=== PATIENT | male | born 1975 | race Hispanic/Latino ===

== ENCOUNTER → 2023-10-10 10:12 | Outpatient (REF) | payer OTHER, SELFPAY ==
[2023-10-10 11:04] LABS: % Basophils 1.2 % (0-2); % Eosinophils 2.5 % (0-6); % Immature Granulocytes 0.3 % (0-0.5); % Lymphocytes 31.7 % (20.5-51.1); % Monocytes 7.4 % (1.7-9.3); % Neutrophils 56.9 % (42.2-75.2); Absolute Basophils 0.1 10^3/uL (0-0.2); Absolute Eosinophils 0.2 10^3/uL (0-0.7); Absolute Lymphocytes 2.4 10^3/uL (1.2-3.4); Absolute Monocytes 0.6 10^3/uL (0.1-0.6); Absolute Neutrophils 4.3 10^3/uL (1.4-6.5); Hemoglobin 15.3 g/dL (13.0-18.0); Mean Corp Hgb Conc. 34.8 g/dL (33.0-37.0); Mean Corpuscular Hgb 28.7 pg (27.0-31.0); Mean Corpuscular Volume 82.4 fL (80.0-94.0); Mean Platelet Volume 11.2 fL (7.4-10.4); Nucleated Red Blood Cells % 0 % (-); Platelet Count 261 10^3/uL (130-400); Red Blood Cell Count 5.34 10^6/uL (4.70-6.10); Red Cell Dist. Width 12.3 % (11.5-14.5); White Blood Cell Count 7.6 10^3/uL (4.8-10.8)
[2023-10-10 11:09] LABS: Urine Albumin Negative (Neg - Trace); Urine Bilirubin Negative (Negative); Urine Character Clear (Clear); Urine Color Yellow; Urine Glucose Negative (Negative); Urine Ketone Negative (Negative); Urine Leukocyte Negative (Negative); Urine Nitrite Negative (Negative); Urine Occult Blood Negative (Negative); Urine Urobilinogen Negative (Neg - 1+)
[2023-10-10 11:29] LABS: ALT (SGPT) 31 U/L (0-50); AST (SGOT) 28 U/L (17-59); Albumin 3.9 g/dl (3.5-5.0); Alkaline Phosphatase 75 U/L (38-126); Blood Urea Nitrogen 15 mg/dl (9-20); Calcium 9.1 mg/dl (8.4-10.2); Carbon Dioxide 33 mmol/L (22-30); Chloride 100 mmol/L (98-107); Glucose 91 mg/dl (70-99); HDL Cholesterol 38 mg/dl; LDL Cholesterol, Calculated 99 mg/dl; Potassium 3.5 mmol/L (3.5-5.1); Sodium 141 mmol/L (135-145); Total Cholesterol 160 mg/dl (50-199); Total Protein 6.8 g/dl (6.3-8.2); Triglyceride 117 mg/dl (10-149); Very Low Density Lipoprotein 23 mg/dl (0-30); eGFR > 60.00
[2023-10-10 11:59] LABS: TSH Reflex To Free T4 0.75 uIU/ml (0.47-4.68)
[2023-10-10 12:00] LABS: Hepatitis B Surface Antigen Negative (Negative)
[2023-10-10 12:17] LABS: Hepatitis B Surface Antibody Negative; Hepatitis C Antibody Negative (Negative)
[2023-10-10 12:52] LABS: Hepatitis A Antibody, Total Positive (Negative)
== END ==
LOC: CLINIC 10:12
PROVIDERS: ATTENDING PHYSICIAN Family Medicine; FAMILY PHYSICIAN Nurse Practitioner Adult Health
DX: R07.2 Precordial pain (principal); Z00.01 Encounter for general adult medical examination with abnormal findings; R03.0 Elevated blood-pressure reading, without diagnosis of hypertension; K76.9 Liver disease, unspecified; H57.13 Ocular pain, bilateral
CPT/HCPCS: 36415; 71046; 80053; 80061; 81003; 84443; 85025; 86706; 86708; 86803; 87340

== ENCOUNTER → 2024-04-25 08:31 | Outpatient (REF) | payer OTHER, SELFPAY ==
[2024-04-27 12:18] LABS: Quantiferon Mitogen minus NIL 9.93 IU/mL; Quantiferon NIL 0.07 IU/mL; Quantiferon Plus TB1 minus NIL 0.03 IU/mL (<=0.34); Quantiferon Plus TB2 minus NIL 0.03 IU/mL (<=0.34); Quantiferon TB Gold Plus Negative (Negative)
== END ==
LOC: REG 08:31
PROVIDERS: ATTENDING PHYSICIAN Nurse Practitioner Adult Health
DX: J84.10 Pulmonary fibrosis, unspecified (principal)
CPT/HCPCS: 36415; 86480

== ENCOUNTER 2024-12-08 11:55 | Emergency (ER) | payer SELFPAY ==
[2024-12-08 11:58] VITALS: BP 192/137
--- NOTE | 2024-12-08 12:26 | ED.GENMED ---
History of Present Illness
<Kiera Guerrero, COBBLER UPPER - Last Filed: 12/08/24 16:36>
General
Chief Complaint: Fever
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
Exam Limitations: none
Time Seen by Provider: 12/08/24 12:21
Nursing documentation reviewed up to this point in time: agreed with
History of Present Illness
History of Present Illness:
49-year-old male with no past medical history states he has had gradually increasing right submandibular pain over the past 2 days. He states he has had fever and chills but did not take his temperature. He states he has pain with swallowing. He
denies pain in his ears. He denies nausea or vomiting. He has not taken his BP med in a month. He ran out.
Past History
<Kiera Guerrero, COBBLER UPPER - Last Filed: 12/08/24 16:36>
Past History
ED Past Medical History: HTN
ED Past Surgical History: None
Social History
Tobacco: Non-smoker
Alcohol: None
Drug: None
Personal:
Living: with family
Employment: Not employed
Review of Systems
<Kiera Guerrero, COBBLER UPPER - Last Filed: 12/08/24 16:36>
Review of Systems
Allergies reviewed?: Yes
All Other Systems: ROS reviewed and negative except as documented in HPI and ROS
Constitutional: Reports fever; Denies chills
EENT: Reports other (Swelling under right jaw, pain with swallowing)
Respiratory: Denies trouble breathing
Cardiac: Denies chest pain
ABD/GI: Denies abdominal pain, nausea, vomiting or diarrhea
: Denies dysuria, frequency or difficulty voiding
Musculoskeletal: Reports no symptoms
Skin: Reports no symptoms
Neurological: Reports no symptoms
Phy Exam
<Kiera Guerrero, COBBLER UPPER - Last Filed: 12/08/24 16:36>
Physical Exam
Physical Exam:
GENERAL: No acute distress. A&Ox3.
CONSTITUTIONAL: Afebrile.
EYES: clear, conjunctivae normal
ENMT: moist mucus membranes, Pharynx nl, no trismus. Moderately swollen, tender mass right submandibular area. Speaking and swallowing well. No dental pain to palpation, no visible or palpable dental abscess
RESPIRATORY: Regular respirations, nonlabored, lungs clear..
CARDIOVASCULAR: Regular rate and rhythm, no murmurs, no rubs.
GI: Soft, nontender, normal BS
MUSCULOSKELETAL: Moves with ease. Well perfused.
SKIN: Warm, dry, pink
PSYCH: Normal mood and affect. Well kept, interactive and appropriate
NEUROLOGIC: Awake, alert and oriented. No focal neurological deficits
Sepsis
<Kiera Guerrero, COBBLER UPPER - Last Filed: 12/08/24 16:36>
Sepsis Screening
Sepsis Assessment: Sepsis Ruled Out
Sepsis Screen
Sepsis Screen: Sepsis Ruled Out
Date: 12/08/24
Time: 16:36
Course
<Kiera Guerrero, COBBLER UPPER - Last Filed: 12/08/24 16:36>
Orders/Labs/Results
Orders:
Orders
12/08/24 12:25
CT Neck With Iv Contrast Urgent
Comment:
Reason For Exam: swelling, pain right submandibular area
12/08/24 12:36
Ketorolac [Toradol] 15 mg IV NOW STA
12/08/24 12:37
0.9% Sodium Chloride 1000 ml [Nss] 1,000 ml IV BOLUS
12/08/24 12:51
Complete Blood Count/With Diff Urgent
Comprehensive Metabolic Panel Urgent
12/08/24 13:24
Lisinopril [Zestril] 10 mg PO NOW STA
12/08/24 14:28
Vital Signs- Treatment ONCE
Frequency: Once
12/08/24 16:05
Lisinopril [Zestril] 10 mg PO NOW STA
12/08/24 16:15
Dicloxacillin [Dynapen] 500 mg PO NOW STA
12/08/24 16:19
Amoxicillin 875 mg/Clav 125 mg [Augmentin 875 mg/125 mg] 1 tablet PO NOW STA
Abnormal Lab Results
12/08/24
12:51
WBC 14.2 H 10^3/uL
(4.8-10.8)
MPV 10.5 H fL
(7.4-10.4)
Abs Immat Gran (auto) 0.1 H 10^3/uL
(0-0.05)
Absolute Neuts (auto) 10.0 H 10^3/uL
(1.4-6.5)
Absolute Monos (auto) 1.4 H 10^3/uL
(0.1-0.6)
Lymphocytes % 18.1 L %
(20.5-51.1)
Monocytes % 9.8 H %
(1.7-9.3)
Potassium 3.3 L mmol/L
(3.5-5.1)
Carbon Dioxide 31 H mmol/L
(22-30)
Glucose 100 H mg/dl
(70-99)
Total Bilirubin 1.6 H mg/dl
(0.2-1.3)
ALT 54 H U/L
(0-50)
12/08/24 12:51
12/08/24 12:51
Vital Signs
Initial and Last Documented VS:
Initial Vital Signs
Temp Pulse Resp BP Pulse Ox
99.4 F 93 22 192/137 95
12/08/24 11:58 12/08/24 11:58 12/08/24 11:58 12/08/24 11:58 12/08/24 11:58
Last Documented Vital Signs
Temp Pulse Resp BP Pulse Ox
98.7 F 78 22 160/107 95
12/08/24 16:16 12/08/24 16:15 12/08/24 11:58 12/08/24 16:15 12/08/24 11:58
<Joel Hess, - Last Filed: 12/08/24 13:00>
Orders/Labs/Results
Orders:
Orders
12/08/24 12:25
CT Neck With Iv Contrast Urgent
Comment:
Reason For Exam: swelling, pain right submandibular area
12/08/24 12:36
Ketorolac [Toradol] 15 mg IV NOW STA
12/08/24 12:37
0.9% Sodium Chloride 1000 ml [Nss] 1,000 ml IV BOLUS
12/08/24 12:51
Complete Blood Count/With Diff Urgent
Comprehensive Metabolic Panel Urgent
12/08/24 13:24
Lisinopril [Zestril] 10 mg PO NOW STA
12/08/24 14:28
Vital Signs- Treatment ONCE
Frequency: Once
12/08/24 16:05
Lisinopril [Zestril] 10 mg PO NOW STA
12/08/24 16:15
Dicloxacillin [Dynapen] 500 mg PO NOW STA
12/08/24 16:19
Amoxicillin 875 mg/Clav 125 mg [Augmentin 875 mg/125 mg] 1 tablet PO NOW STA
Abnormal Lab Results
12/08/24
12:51
WBC 14.2 H 10^3/uL
(4.8-10.8)
MPV 10.5 H fL
(7.4-10.4)
Abs Immat Gran (auto) 0.1 H 10^3/uL
(0-0.05)
Absolute Neuts (auto) 10.0 H 10^3/uL
(1.4-6.5)
Absolute Monos (auto) 1.4 H 10^3/uL
(0.1-0.6)
Lymphocytes % 18.1 L %
(20.5-51.1)
Monocytes % 9.8 H %
(1.7-9.3)
Potassium 3.3 L mmol/L
(3.5-5.1)
Carbon Dioxide 31 H mmol/L
(22-30)
Glucose 100 H mg/dl
(70-99)
Total Bilirubin 1.6 H mg/dl
(0.2-1.3)
ALT 54 H U/L
(0-50)
12/08/24 12:51
12/08/24 12:51
Vital Signs
Initial and Last Documented VS:
Initial Vital Signs
Temp Pulse Resp BP Pulse Ox
99.4 F 93 22 192/137 95
12/08/24 11:58 12/08/24 11:58 12/08/24 11:58 12/08/24 11:58 12/08/24 11:58
Last Documented Vital Signs
Temp Pulse Resp BP Pulse Ox
98.7 F 78 22 160/107 95
12/08/24 16:16 12/08/24 16:15 12/08/24 11:58 12/08/24 16:15 12/08/24 11:58
<Kiera Guerrero, COBBLER UPPER - Last Filed: 12/08/24 16:36>
MDM/Problems Addressed
MDM/Problems Addressed:
49-year-old male with no past medical history states he has had gradually increasing right submandibular pain over the past 2 days. He states he has had fever and chills but did not take his temperature. He states he has pain with swallowing. He
denies pain in his ears. He denies nausea or vomiting. He has not taken his BP med in a month. He ran out.
BP 175/110 Given dose of Lisinopril
4:00 PM:
BP 160/107 second dose Lisinopril given
CBC: WBC 14.2
CMP: With no clinically significant abnormality
4:[address] neck radiology report read: IMPRESSION:
1. ACUTE RIGHT SUBMANDIBULAR SIALOADENITIS.
2. Mild bilateral cervical lymphadenopathy.
3. Mild discogenic degenerative disease at C3/C4 and C4/C5 with small disc-osteophyte complexes causing mild spinal cord compression and central canal stenosis.
4. 5.1 cm lobular mass in the right paratracheal region of the mediastinum most suggestive of a LARGE RIGHT BRONCHOGENIC CYST. Other benign congenital cysts or malformations are also possible. A soft tissue tumor is considered less likely.
5. Chronic granulomatous disease infection in both lungs.
This examiner reviewed all discharge instructions through language line and all questions answered. He states he will go to the clinic tomorrow and get his blood pressure medications and the Augmentin. I gave him prescriptions for both
First dose of antibiotic given here today.
<Kiera Guerrero COBBLER UPPER - Last Filed: 12/08/24 16:36>
*Critical Care Note
Total Time (30-74mins, 75-104mins- exclusive of procedures): Not Applicable
ED Attending Note
<Kiera Guerrero COBBLER UPPER - Last Filed: 12/08/24 16:36>
-
Portions of this chart may have been created with voice recognition software.� Occasional wrong word or��sound alike� substitutions may have occurred due to the inherent limitations of voice recognition software.
<Joel Hess DO - Last Filed: 12/08/24 13:00>
ED Attending Note
Patient seen and examined by attending physician: Yes
I performed the substantive portion of visit, reviewed & personally made and approve the management plan that is documented in note by myself or ALISON.: Yes
Discharge Plan
Departure
Patient Disposition: Home (Routine Discharge)
Date of Disposition: 12/08/24
Time of Disposition: 16:24
Patient with high blood pressure during this ER visit?: Yes
Condition: Fair
Discharge Problem:
Sialadenitis, Hypertension
Instructions: Fever, Adult (DC), Salivary Gland Infection (DC), BLOOD PRESSURE
Prescriptions:
New
lisinopril 20 mg tablet
20 mg PO DAILY Qty: 7 0RF
amoxicillin-pot clavulanate 875-125 mg tablet
1 tab PO BID Qty: 20 0RF
No Action
meloxicam 15 mg Tablet
15 mg PO DAILY
lisinopril 20 mg Tablet
20 mg PO DAILY
Referrals:
[facility] [Other] - Tomorrow
UNKNOWN - PT DOES,NOT KNOW [Family Provider] -
Activity Restrictions/Additional Instructions:
As we discussed, you have an infection in the saliva gland. You need antibiotics
Drink plenty of fluids, warm compress 15 minutes 3-4 times a day, massage the area, suck on sour lemon drops to get the saliva flowing,
You had a dose of antibiotic here. Take the prescription I gave you to the Clinic tomorrow to get the rest of the medication.
Get your blood pressure medication tomorrow also.
Go to the Clinic tomorrow as you need your antibiotic and blood pressure medication
Take the antibiotic prescription with you.
Interventions
Interventions:
*Risk Screen - Suicide Last Done: 12/08/24 11:58
*General Assessment Last Done: 12/08/24 11:58
*Neglect/Abuse Screening Last Done: 12/08/24 11:58
*ED- Fall Risk Assessment Last Done: 12/08/24 14:06
*ED COVID-19 Vaccine History Last Done: 12/08/24 14:06
ED- Neurological Assessment Last Done: 12/08/24 14:06
ED-Skin Assessment Last Done: 12/08/24 14:06
Discharge Date and Time
Print Language: SWAZI
[2024-12-08 12:57] LABS: % Basophils 0.6 % (0-2); % Eosinophils 0.7 % (0-6); % Immature Granulocytes 0.4 % (0-0.5); % Lymphocytes 18.1 % (20.5-51.1); % Monocytes 9.8 % (1.7-9.3); % Neutrophils 70.4 % (42.2-75.2); Absolute Basophils 0.1 10^3/uL (0-0.2); Absolute Eosinophils 0.1 10^3/uL (0-0.7); Absolute Immature Granulocytes 0.1 10^3/uL (0-0.05); Absolute Lymphocytes 2.6 10^3/uL (1.2-3.4); Absolute Monocytes 1.4 10^3/uL (0.1-0.6); Mean Corp Hgb Conc. 35.6 g/dL (33.0-37.0); Mean Corpuscular Hgb 29.4 pg (27.0-31.0); Mean Corpuscular Volume 82.6 fL (80.0-94.0); Mean Platelet Volume 10.5 fL (7.4-10.4); Nucleated Red Blood Cells % 0 % (-); Platelet Count 221 10^3/uL (130-400); Red Blood Cell Count 5.45 10^6/uL (4.70-6.10); Red Cell Dist. Width 12.9 % (11.5-14.5); White Blood Cell Count 14.2 10^3/uL (4.8-10.8)
[2024-12-08] MEDS: NSS 1000 IV (13:05)
[2024-12-08] MEDS: TORADOL 15 MG IV (13:05)
[2024-12-08 13:11] LABS: ALT (SGPT) 54 U/L (0-50); AST (SGOT) 29 U/L (17-59); Albumin 4.1 g/dl (3.5-5.0); Alkaline Phosphatase 60 U/L (38-126); Blood Urea Nitrogen 12 mg/dl (9-20); Calcium 8.7 mg/dl (8.4-10.2); Carbon Dioxide 31 mmol/L (22-30); Chloride 102 mmol/L (98-107); Glucose 100 mg/dl (70-99); Potassium 3.3 mmol/L (3.5-5.1); Sodium 141 mmol/L (135-145); Total Bilirubin 1.6 mg/dl (0.2-1.3); Total Protein 6.7 g/dl (6.3-8.2); eGFR > 60.00
[2024-12-08 13:16] VITALS: BP 169/119
[2024-12-08] MEDS: ZESTRIL 10 MG PO ×2 (13:51→16:15)
[2024-12-08 14:00] VITALS: BP 186/101
[2024-12-08 15:00] VITALS: BP 175/110
[2024-12-08] MEDS: AUGMENTIN 875 MG/125 MG 1 TABLET PO (16:37)
== END 2024-12-08 16:56 | disposition home or self-care (01) ==
LOC: EMR 11:55
PROVIDERS: Registered Nurse; EMERGENCY PHYSICIAN Emergency Medicine
DX: K11.20 Sialoadenitis, unspecified (principal); I10 Essential (primary) hypertension
CPT/HCPCS: 99285; 96374; 96361; 70491; 80053; 85025; Q9967

== ENCOUNTER 2024-12-25 01:52 | Emergency (ER) | payer SELFPAY ==
[2024-12-25 01:58] VITALS: BP 206/128
--- NOTE | 2024-12-25 04:14 | ED.GENMED ---
History of Present Illness
General
Chief Complaint: Skin Surface Trauma
Source: patient
Exam Limitations: none
Time Seen by Provider: 12/25/24 03:27
Nursing documentation reviewed up to this point in time: agreed with
History of Present Illness
History of Present Illness:
This is a 49 year-old male with a past medical history of hypertension on lisinopril who presents to the emergency apartment with concerns of a laceration to his left interior hand. Patient reports that he was at work today, working outside when he
was changing a blade in a lawn cutter when he accidentally cut his hand during work. Patient reports of the long cutter and the blade or dirty at the time. Patient reports that you went home and cleanse the wound with hydrogen peroxide and alcohol
and reports that he tried to put a bandage on it, but the bleeding would not stop. Patient is up-to-date on his tetanus vaccination. Patient follows with the [facility] clinic. Patient states that he did have some transient numbness and tingling in his
left pinky finger, but denies any loss of sensation, denies any decreased range of motion. Patient denies any other injuries.
Past History
Past History
ED Past Medical History: HTN
ED Past Surgical History: None
Social History
Tobacco: Non-smoker
Alcohol: None
Drug: None
Personal:
Living: with family
Employment: Not employed
Review of Systems
Review of Systems
All Other Systems: ROS reviewed and negative except as documented in HPI and ROS
Phy Exam
Physical Exam
Physical Exam:
General: Patient is well appearing and in no acute distress; non-toxic
Skin: Warm and dry, 3 cm actively bleeding laceration noted to left medial anterior palm no foreign body no tendon involvement
Head: Normocephalic, atraumatic
Eyes: Sclera non-icteric. EOMs intact.
Cardiac: Regular rate
Peripheral Vascular: Brisk capillary refill
Pulm: Normal respiratory effort
Musculoskeletal: No bony tenderness to palpation of the left upper extremity, 5/5 strength of the phalanges full ROM, FDP FDS testing intact
Neuro: CN II-XII intact, no focal neurologic deficits. Sensation intact good 2 point discrimination.
Psychiatric: Appropriate mood and affect.
Course
Vital Signs
Initial and Last Documented VS:
Initial Vital Signs
Temp Pulse Resp BP Pulse Ox
98.7 F 82 16 206/128 95
12/25/24 01:58 12/25/24 01:58 12/25/24 01:58 12/25/24 01:58 12/25/24 01:58
Last Documented Vital Signs
Temp Pulse Resp BP Pulse Ox
98.7 F 82 16 151/94 95
12/25/24 01:58 12/25/24 01:58 12/25/24 01:58 12/25/24 04:29 12/25/24 01:58
Procedures
Laceration Closure
Left Anterior Medial Hand:
Status of Wound: clean
Size of Wound in cm: 3
Description of Wound Edges: sharp
Preparation: cleaned with saline
Anesthesia: 1% Lidocaine with epi
Revision/Debridement: routine- no revision
Wound exploration: explored to base- no FB
Type of Closure: single layer closure
Skin Closure Material: 4-0 prolene
Number of sutures: 4
MDM/Problems Addressed
Differential Diagnosis Includes:
abrasion, laceration, contusion
MDM/Problems Addressed:
This is a 49 year-old male with a past medical history of hypertension on lisinopril who presents to the emergency apartment with concerns of a laceration to his left interior hand. Patient reports that he was at work today, working outside when he
was changing a blade in a lawn cutter when he accidentally cut his hand during work. He is UTD on tetanus. PE as above. Laceration repaired with sutures, bleeding controlled, small oozing arteriole. Pressure dressing applied. Pt stable for discharge
*Pulse Oximetry
Patient hypoxic: no
*Critical Care Note
Total Time (30-74mins, 75-104mins- exclusive of procedures): Not Applicable
Data Reviewed
Review of Other/Old Records Reveals: Records
ED Attending Note
-
Portions of this chart may have been created with voice recognition software.� Occasional wrong word or��sound alike� substitutions may have occurred due to the inherent limitations of voice recognition software.
Discharge Plan
Departure
Patient Disposition: Home (Routine Discharge)
Date of Disposition: 12/25/24
Time of Disposition: 05:28
Patient with high blood pressure during this ER visit?: Yes
Condition: Good
Discharge Problem:
Hand laceration
Instructions: Laceration Repair With Stitches (DC), BLOOD PRESSURE
Prescriptions:
New
cephalexin 500 mg capsule
500 mg PO QID 5 Days Qty: 20 0RF
No Action
meloxicam 15 mg Tablet
15 mg PO DAILY
lisinopril 20 mg Tablet
20 mg PO DAILY
lisinopril 20 mg tablet
20 mg PO DAILY Qty: 7 0RF
amoxicillin-pot clavulanate 875-125 mg tablet
1 tab PO BID Qty: 20 0RF
Referrals:
UNKNOWN - PT DOES,NOT KNOW [Family Provider] -
Stand Alone Forms: Return to Work
Activity Restrictions/Additional Instructions:
Please keep wound dry for 24 hours. Please have your stitches removed in 5 to 7 days with the free clinic period you can also report to the emergency department or urgent care to have them removed period because of the dirty nature of your wound
comma Keflex has been sent to your Pharmacy period you could take one tablet 4 times daily for 5 days. Please continue to monitor your blood pressure. PLEASE RETURN TO THE ER SHOULD YOU DEVELOP LOSS OF SENSATION, INABILITY TO MOVE YOUR FINGERS,
PURULENT DRAINAGE FROM THE WOUND, SURROUNDING REDNESS, CHEST PAIN, SHORTNESS OF BREATH, FEVERS OR CHILLS, OR ANY OTHER SIGNS OR SYMPTOMS WORRISOME TO YOU.
Mantenga la herida seca john 24 horas. Retire los puntos en 5 a 7 d�as con la consulta gratuita. [place] puede acudir a urgencias para que se los retiren. Debido a la naturaleza sucia de la herida, se pyle enviado Keflex a [place] farmacia. Puede sedrick
jamie tableta 4 veces al d�a john 5 d�as. Contin�e controlando [place] presi�n arterial. Regrese a urgencias si presenta p�rdida de sensibilidad, dificultad para marble rubber los dedos, secreci�n purulenta de la herida, enrojecimiento circundante, dolor
intenso, dificultad para respirar, fiebre o escalofr�os, o cualquier otro signo o s�ntoma preocupante.
Interventions
Interventions:
*Risk Screen - Suicide Last Done: 12/25/24 01:58
*General Assessment Last Done: 12/25/24 04:29
*Neglect/Abuse Screening Last Done: 12/25/24 01:58
*ED- Fall Risk Assessment Last Done: 12/25/24 01:58
*ED COVID-19 Vaccine History Last Done: 12/25/24 01:58
*Nursing Disposition Last Done: 12/25/24 05:35
ED-Skin Assessment Last Done: 12/25/24 04:29
Discharge Date and Time
Discharge Date/Time: 12/25/24 05:35
Print Language: BENGALI
[2024-12-25 04:29] VITALS: BP 151/94
== END 2024-12-25 05:35 | disposition home or self-care (01) ==
LOC: EMR 01:52
PROVIDERS: EMERGENCY PHYSICIAN Student in an Organized Health Care Education/Training Program
DX: S61.412A Laceration without foreign body of left hand, initial encounter (principal); W31.89XA Contact with other specified machinery, initial encounter; Y93.89 Activity, other specified; Y92.89 Other specified places as the place of occurrence of the external cause; Y99.0 Civilian activity done for income or pay; I10 Essential (primary) hypertension; Z79.899 Other long term (current) drug therapy
CPT/HCPCS: 99283; 12002